=== PATIENT | female | born 1955 | race Caucasian/White ===

== ENCOUNTER 2020-03-24 21:02 | Inpatient (IN) | payer MEDICAID, SELFPAY ==
[2020-03-24 21:11] VITALS: BP 156/92; PULSE 99; RESP 19; TEMP 36; O2SAT 97
[2020-03-24] MEDS: Lactated Ringers 1,000 ML 125 ML IV (22:53)
[2020-03-24] MEDS: metroNIDAZOLE 500 MG/100 ML BAG 100 MG IVPB (22:54)
[2020-03-24] MEDS: Normal Saline Flush 10 ML SYR IVP (23:06)
[2020-03-25] MEDS: CIPROFLOXACIN 400 MG/200 ML BAG 200 MG IVPB ×3 (00:23→23:19)
[2020-03-25] MEDS: metroNIDAZOLE 500 MG/100 ML BAG 100 MG IVPB ×3 (05:32→21:37)
[2020-03-25 05:34] VITALS: BP 139/85; PULSE 72; RESP 17; TEMP 36.5; O2SAT 95
[2020-03-25 06:42] LABS: Abs Immature Grans 0.03 10^3/uL (0.0-0.06); Absolute Basophil Count 0.05 10^3/uL (0.0-0.2); Absolute Eosinophil Count 0.11 10^3/uL (0.0-0.7); Absolute Lymphocyte Count 1.13 10^3/uL (1.2-3.4); Absolute Neutrophil Count 6.83 10^3/uL (1.2-6.7); Basophils % 0.6; Eosinophils % 1.3; HCT 38.6 % (36.0-46.0); HGB 12.6 g/dL (11.2-15.7); Immature Grans % 0.3; Lymphocytes % 12.9; MCH 29.6 pg (27.0-33.0); MCHC 32.6 % (32.0-36.0); MCV 90.8 fL (80-95); MPV 10.5 fL (8.0-11.0); Monocytes % 6.9; Platelet Count 271 10^3/uL (130-400); RBC 4.25 10^6/uL (3.93-5.22); RDW 12.4 % (11.7-14.6); RDW-SD 40.9 fL; WBC 8.75 10^3/uL (4.4-10.8)
[2020-03-25 06:53] LABS: BUN 9 mg/dL (7-18); CREATININE 0.76 mg/dL (0.55-1.02); Calcium 8.8 mg/dL (8.5-10.1); Chloride 101 mmol/L (98-107); Glucose 118 mg/dL (74-106); Potassium 3.4 mmol/L (3.5-5.1); Sodium 138 mmol/L (136-145)
--- NOTE | 2020-03-25 07:19 | W.PM.HP.N ---
Date of service: 03/25/20 Time of Service: 07:19 Assessment and Plan Assessment and plan (1) Abscess of sigmoid colon due to diverticulitis: Status: Acute Assessment and plan: A// Patient appears comfortable and was observed ambulating independently within her room. IV antibiotics- Metronidazole and Ciprofloxacin IV fluids for hydration Tylenol and Toradol ordered for pain control P// IV antibiotics for sigmoid colon abscess secondary to diverticulitis. History of Present Illness History of Present Illness Chief Complaint: Sigmoid Colon Diverticulitis with abscess Narrative: 64 y/o female who was transferred from [facility] with a d/c of sigmoid colon diverticulitis with perforation with 2.5cm fluid collection on CT. Patient was started on PO Augmentin on 03/16 with no change in her symptoms. She returned to [facility] ED, she declined transfer to [facility] and requested to be transferred to [facility]. She reports a 2 week history of altered BM's (soft, small pieces) and constipation and associated cramping LLQ pain. She states that she has never had a Colonoscopy. Denies fevers, chills or night sweats. Review of Systems Constitutional Constitutional: Denies chills, Denies fever(s) and Denies night sweats Cardiovascular Cardiovascular: Denies chest pain, Denies chest pain at rest, Denies chest pain with activity, Denies syncope and Denies dyspnea Respiratory Respiratory: Denies cough, Denies dyspnea and Denies wheezing Gastrointestinal Gastrointestinal: Reports as per HPI, Reports abdominal pain, Denies melena, Reports cramping and Denies heartburn Neurologic Neurologic: Denies syncope Allergic/Immunologic Allergic/Immunologic: Denies wheezing [facility] Surgical History (Updated 03/24/20 @ 23:17 by Conchita Kenee) 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 at the same time Social History Smoking/Tobacco Use Status: Former Tobacco Use Drug use: Never Substance use type: does not use Do you feel safe at home: Yes Do you feel safe in your relationship?: Yes Meds Home Medications and Allergies Home Medications Medication Instructions Recorded Confirmed Type acetaminophen [Tylenol Extra 500 mg PO Q6H PRN PRN 03/24/20 03/24/20 History Strength] amoxicillin-pot clavulanate 1 tab PO BID 03/24/20 03/24/20 History [Augmentin] Allergies Allergy/AdvReac Type Severity Reaction Status Date / Time No Known Allergies Allergy Unverified 03/24/20 21:01 Exam Const General: cooperative, healthy appearing and comfortable Orientation: alert and oriented x3 Resp Effort & Inspection: normal respiratory effort, no audible wheezes and no cough Cardio Jugular venous pressure: no JVD Rate: regular rate Rhythm: regular rhythm Heart Sounds: S1 normal, S2 normal and no murmurs GI Inspection: normal to inspection and non-distended Palpation: soft, no guarding and tender in the LLQ Auscultation: normal bowel sounds Results Labs Result diagrams: 03/25/20 06:20 03/25/20 06:20 Labs: Laboratory Results - last 24 hr 03/25/20 03/25/20 06:20 06:20 WBC 8.75 RBC 4.25 Hgb 12.6 Hct 38.6 MCV 90.8 MCH 29.6 MCHC 32.6 RDW 12.4 Plt Count 271 MPV 10.5 Immature Gran % 0.3 Neutrophils % 78.0 Lymphocytes % 12.9 Monocytes % 6.9 Eosinophils % 1.3 Basophils % 0.6 Absolute Neutrophils 6.83 H Absolute Lymphocytes 1.13 L Absolute Monocytes 0.60 Absolute Eosinophils 0.11 Absolute Basophils 0.05 Sodium 138 Potassium 3.4 L Chloride 101 Carbon Dioxide 29.0 Anion Gap 8.0 BUN 9 Creatinine 0.76 Estimated GFR/1.73 m2 >= 60.00 Glucose 118 H Calcium 8.8 Last Vital Signs Temp 36.5 C 03/25/20 05:34 Pulse 72 03/25/20 05:34 Resp 17 03/25/20 05:34 BP 139/85 03/25/20 05:34 Pulse Ox 95 03/25/20 05:34 COVID-19 Screening Have you,or household,traveled outside [place] in last 14 days?: No Had IN PERSON contact w/suspected or confirmed C-19 person: No
[2020-03-25 07:49] VITALS: BP 139/79; PULSE 71; RESP 17; TEMP 37; O2SAT 96
[2020-03-25] MEDS: Lactated Ringers 1,000 ML 125 ML IV (09:17)
[2020-03-25] MEDS: Docusate Sodium 100 MG CAP PO ×2 (09:24→19:23)
--- NOTE | 2020-03-25 10:40 | PHA.REVIEW ---
Pharmacy Admission Review - Admission Clinical Review Abscess of sigmoid colon due to diverticulitis (Acute) No Known Allergies Allergy (Unverified 03/24/20 21:01) Height 5 ft Weight 79.379 kg - Renal Dosing Renal Dosing: BUN 9 mg/dL (7-18) 03/25/20 06:20 Creatinine 0.76 mg/dL (0.55-1.02) 03/25/20 06:20 Medications needing adjustments: Reviewed (CrCl ~70.7 mL/min using adjusted BW, current meds okay) - Anticoagulation Anticoagulation: Hgb 12.6 g/dL (11.2-15.7) 03/25/20 06:20 Hct 38.6 % (36.0-46.0) 03/25/20 06:20 Plt Count 271 10^3/uL (130-400) 03/25/20 06:20 Creatinine 0.76 mg/dL (0.55-1.02) 03/25/20 06:20 DVT Prohphylaxis: N/A Therapeutic Anticoagulation: N/A - Opiate Usage Evaluate Pain Scale/Pains Meds: Reviewed (Morphine PRN) Scheduled Bowel Reg ordered if on Opiates?: Yes (Docusate) - Relevant Labs Sodium 138 mmol/L (136-145) 03/25/20 06:20 Potassium 3.4 mmol/L (3.5-5.1) L 03/25/20 06:20 Chloride 101 mmol/L (98-107) 03/25/20 06:20 Electrolytes, C-Reactive P, ESR: Reviewed - DM Control DM Control: Glucose 118 mg/dL (74-106) H 03/25/20 06:20 Insulin Dosing: N/A (No DM, glucose was elevated at 118) - Heart Failure/ME EF%, DEANDRE's, B-Blockers, Diuretics: N/A - BP Control BP Control: Blood Pressure 139/79 Blood Pressure 139/85 If elevated: N/A (BP good, was elevated yesterday but has normalized today) - Qtc Review If Elevated: N/A (No EKG labs) - IV to PO Switch IV Medications: Reviewed (IV ciprofloxacin, ketorolac, metronidazole, ondansetron) - Home Meds Home Med List reviewed: Reviewed Relevent Home Meds Not ordered & why?: Augmentin (started PO on 03/16 but no change in symptoms, current orders for ciprofloxacin and metronidazole) - Current meds Current Medication Order Review: Reviewed (Watch for QTc prolongation, no current EKG labs but on ciprofloxacin, metronidazole and ondansetron) - Comments Comments/Follow Ups: Monitor K+, watch for addition of any QTc prolonging meds (currently on 3)
--- NOTE | 2020-03-25 11:02 | INITIAL_ITS ---
- If Service Date Differs Date of service: 03/25/20 Time of Service: 11:02 Care Management Initial Assess REASON FOR HOSPITALIZATION:: Diverticulitis PAST MEDICAL HISTORY/PAST SURGICAL HISTORY:: Surgical History. History of tubal ligation (Chronic). 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 She has three children who are all fairly local. Currently her grand daughter lives with her along with her granddaughter's boyfriend and child. She is independent at baseline. CURRENT FUNCTIONAL STATUS:: Patricia was lying in bed when CM met with her. She stated that she is feeling better today, and that she has been able to get up and walk a bit. She stated that she was hoping to return home this afternoon, but had not yet seen the MD. Per report, she will continue to receive IV abx, and will be reassessed in the morning. She was pleasant and engaged in conversation. Her son, Dieter was in the room. CM will continue to follow. ADVANCE DIRECTIVES:: None on file. Has patient been provided with info about the portal/API?: No Did the patient sign up for the portal?: No CODE STATUS:: Full Code INSURANCE COVERAGE / FINANCIAL ISSUES:: Self Pay. CM offered Pt assistance form. CURRENT HOME/COMMUNITY SERVICES/EQUIPMENT:: No current equipment or services in the community. PRIMARY CARE PHYSICIAN:: No local PCP. POTENTIAL DISCHARGE NEEDS:: Evaluations for further needs, follow up appointments. PATIENT/FAMILY EDUCATION NEEDS:: Review discharge instructions regarding activity levels and medications, discussion of self care needs including ask me three ANTICIPATED BARRIERS TO DISCHARGE:: None identified at this time. TRANSPORTATION:: Via private vehicle by family/friends. PLAN:: Anticipate Patricia will return home when medically cleared. She will follow up with her PCP and discharge plan of care. Further evaluations needed to determine if additional services/support needed. CM will continue to follow.
[2020-03-25 13:01] LABS: COVID-19 RT-PCR UVMMC Result Negative (Negative)
--- NOTE | 2020-03-25 15:20 | W.PM.PROGNOT ---
Date of Service Date of service: 03/25/20 Time of Service: 15:20 Assessment and Plan Assessment and plan (1) Abscess of sigmoid colon due to diverticulitis: Status: Acute Assessment and plan: A\\ Diverticulitis with 2.5 cm abscess P\\ Saline lock IV Continue IV antibiotics Reassess in am Subjective Subjective Interval history since last seen: Patient is doing well. She has had a couple of soft BM's. Pain is less and well controlled with Toradol and Tylenol. Her diet has been advanced. She has been drinking a lot of fluids. Discussed reason for IV antibiotics for at least another 24 hours. Exam [facility] Head: normocephalic and atraumatic Resp Effort & Inspection: normal respiratory effort Auscultation: clear to auscultation bilaterally Cardio Rate: regular rate Rhythm: regular rhythm Objective Objective Clinical Data: Abnormal lab results 03/25/20 03/25/20 Range/Units 06:20 06:20 Absolute Neutrophils 6.83 H (1.2-6.7) 10^3/uL Absolute Lymphocytes 1.13 L (1.2-3.4) 10^3/uL Potassium 3.4 L (3.5-5.1) mmol/L Glucose 118 H (74-106) mg/dL Vital Signs Temperature 98.6 F 03/25/20 07:49 Temperature Source Tympanic 03/25/20 07:49 Pulse 71 03/25/20 07:49 Pulse Rhythm Regular 03/25/20 08:51 Respiratory Rate 17 03/25/20 07:49 Respiratory Effort Non-Labored 03/25/20 08:51 Respiratory Depth Normal 03/25/20 08:51 Respiratory Pattern Normal 03/25/20 08:51 Blood Pressure 139/79 03/25/20 07:49 Pulse Oximetry 96 03/25/20 07:49 Oxygen Delivery Method Room Air 03/25/20 07:49 Oxygen Flow Rate 0 03/25/20 07:49 Pain Level 2 03/25/20 07:49 Intake & Output 03/24/20 03/25/20 03/25/20 23:59 11:59 23:59 Intake Total 2.083 / 2.083 1512.50 / 1512.50 Balance 2.083 / 2.083 1512.50 / 1512.50 Weight 175 lb 0.012 oz Intake: IV 2.083 / 2.083 1212.50 / 1212.50 Oral 300 / 300 Other: Urine Color Yellow Yellow Urine Appearance Clear Clear Comment flushed, unable to measure Voids independently in the toliet. Pt voids in the toliet independently. Has frequent voiding. Stool Size Small Large Moderate Stool Characteristics Formed Formed Liquid Voiding Methods Toilet Toilet Laboratory Results WBC 8.75 10^3/uL (4.4-10.8) 03/25/20 06:20 RBC 4.25 10^6/uL (3.93-5.22) 03/25/20 06:20 Hgb 12.6 g/dL (11.2-15.7) 03/25/20 06:20 Hct 38.6 % (36.0-46.0) 03/25/20 06:20 MCV 90.8 fL (80-95) 03/25/20 06:20 MCH 29.6 pg (27.0-33.0) 03/25/20 06:20 MCHC 32.6 % (32.0-36.0) 03/25/20 06:20 RDW 12.4 % (11.7-14.6) 03/25/20 06:20 Plt Count 271 10^3/uL (130-400) 03/25/20 06:20 MPV 10.5 fL (8.0-11.0) 03/25/20 06:20 Immature Gran % 0.3 03/25/20 06:20 Neutrophils % 78.0 03/25/20 06:20 Lymphocytes % 12.9 03/25/20 06:20 Monocytes % 6.9 03/25/20 06:20 Eosinophils % 1.3 03/25/20 06:20 Basophils % 0.6 03/25/20 06:20 Absolute Neutrophils 6.83 10^3/uL (1.2-6.7) H 03/25/20 06:20 Absolute Lymphocytes 1.13 10^3/uL (1.2-3.4) L 03/25/20 06:20 Absolute Monocytes 0.60 10^3/uL (0.1-0.8) 03/25/20 06:20 Absolute Eosinophils 0.11 10^3/uL (0.0-0.7) 03/25/20 06:20 Absolute Basophils 0.05 10^3/uL (0.0-0.2) 03/25/20 06:20 Sodium 138 mmol/L (136-145) 03/25/20 06:20 Potassium 3.4 mmol/L (3.5-5.1) L 03/25/20 06:20 Chloride 101 mmol/L (98-107) 03/25/20 06:20 Carbon Dioxide 29.0 mmol/L (21.0-32.0) 03/25/20 06:20 Anion Gap 8.0 mmol/L (3-11) 03/25/20 06:20 BUN 9 mg/dL (7-18) 03/25/20 06:20 Creatinine 0.76 mg/dL (0.55-1.02) 03/25/20 06:20 Estimated GFR/1.73 m2 >= 60.00 (mL/min/1.73m2) 03/25/20 06:20 Glucose 118 mg/dL (74-106) H 03/25/20 06:20 Calcium 8.8 mg/dL (8.5-10.1) 03/25/20 06:20 COVID-19 PCR Negative (Negative) 03/24/20 22:19 Nasopharyn COVID-19 PCR Not Applicable 03/24/20 22:19 Ref Test Perform Site [facility] 03/24/20 22:19
--- NOTE | 2020-03-25 15:25 | CHAPLAIN ---
Patricia was resting in bed when I visited. Her son (?) was with her. Patricia told me that she is from [place], [place] and she prefers to come here rather than [facility] which is closer for her. She said there is a possibility she will go home today.
[2020-03-25 15:40] VITALS: BP 172/62; PULSE 70; RESP 18; TEMP 36.2; O2SAT 97
[2020-03-25] MEDS: Normal Saline Flush 10 ML SYR IVP ×2 (16:51→21:36)
[2020-03-25 23:51] VITALS: BP 123/69; PULSE 76; RESP 18; TEMP 36.5; O2SAT 96
[2020-03-26] MEDS: metroNIDAZOLE 500 MG/100 ML BAG 100 MG IVPB (05:47)
[2020-03-26] MEDS: Normal Saline Flush 10 ML SYR IVP ×2 (07:15→11:27)
[2020-03-26 07:42] VITALS: BP 135/74; PULSE 71; RESP 17; TEMP 36.4; O2SAT 95
[2020-03-26] MEDS: Docusate Sodium 100 MG CAP PO (07:45)
--- NOTE | 2020-03-26 08:16 | W.PM.PROGNOT ---
Documented by User: OLEGARIO Villatoro 03/26/20 08:17 Date of Service Date of service: 03/26/20 Time of Service: 07:00 Assessment and Plan Assessment and plan (1) Abscess of sigmoid colon due to diverticulitis: Status: Acute Assessment and plan: Continue IV antibiotics. Encouraged ambulation as tolerated. Continue low fiber diet. Subjective Subjective Interval history since last seen: Slept well overnight. Mild, cramping LLQ pain. Denies any nausea, vomiting, fevers or chills. Exam Const General: cooperative, healthy appearing and comfortable Orientation: alert and oriented x3 Resp Effort & Inspection: normal respiratory effort, no audible wheezes and no cough GI Inspection: normal to inspection Palpation: soft, no guarding and nontender Auscultation: normal bowel sounds Objective Objective Clinical Data: Vital Signs Temperature 36.4 C L 03/26/20 07:42 Temperature Source Tympanic 03/26/20 07:42 Pulse 71 03/26/20 07:42 Pulse Rhythm Regular 03/26/20 07:57 Respiratory Rate 17 03/26/20 07:42 Respiratory Effort Non-Labored 03/26/20 07:57 Respiratory Depth Normal 03/26/20 07:57 Respiratory Pattern Normal 03/26/20 07:57 Blood Pressure 135/74 03/26/20 07:42 Pulse Oximetry 95 03/26/20 07:42 Oxygen Delivery Method Room Air 03/26/20 07:42 Oxygen Flow Rate 0 03/26/20 07:42 Pain Level 1 03/26/20 07:42 Intake & Output 03/25/20 03/26/20 03/26/20 18:59 06:59 18:59 Intake Total 1881.25 / 2441.25 560 / 2441.25 Balance 1881.25 / 2441.25 560 / 2441.25 Intake: IV 1581.25 / 1691.25 110 / 1691.25 Oral 300 / 750 450 / 750 Other: Urine Color Yellow Urine Appearance Clear Clear Urine Odor Normal Comment Pt voids in the toliet independently. Has frequent voiding. Pt voided in the toliet independently Stool Size Moderate Stool Characteristics Liquid Voiding Methods Toilet Toilet Laboratory Results WBC 8.75 10^3/uL (4.4-10.8) 08/03/20 06:20 RBC 4.25 10^6/uL (3.93-5.22) 03/25/20 06:20 Hgb 12.6 g/dL (11.2-15.7) 03/25/20 06:20 Hct 38.6 % (36.0-46.0) 03/25/20 06:20 MCV 90.8 fL (80-95) 03/25/20 06:20 MCH 29.6 pg (27.0-33.0) 03/25/20 06:20 MCHC 32.6 % (32.0-36.0) 03/25/20 06:20 RDW 12.4 % (11.7-14.6) 03/25/20 06:20 Plt Count 271 10^3/uL (130-400) 03/25/20 06:20 MPV 10.5 fL (8.0-11.0) 03/25/20 06:20 Immature Gran % 0.3 03/25/20 06:20 Neutrophils % 78.0 03/25/20 06:20 Lymphocytes % 12.9 03/25/20 06:20 Monocytes % 6.9 03/25/20 06:20 Eosinophils % 1.3 03/25/20 06:20 Basophils % 0.6 03/25/20 06:20 Absolute Neutrophils 6.83 10^3/uL (1.2-6.7) H 03/25/20 06:20 Absolute Lymphocytes 1.13 10^3/uL (1.2-3.4) L 03/25/20 06:20 Absolute Monocytes 0.60 10^3/uL (0.1-0.8) 03/25/20 06:20 Absolute Eosinophils 0.11 10^3/uL (0.0-0.7) 03/25/20 06:20 Absolute Basophils 0.05 10^3/uL (0.0-0.2) 03/25/20 06:20 Sodium 138 mmol/L (136-145) 03/25/20 06:20 Potassium 3.4 mmol/L (3.5-5.1) L 03/25/20 06:20 Chloride 101 mmol/L (98-107) 03/25/20 06:20 Carbon Dioxide 29.0 mmol/L (21.0-32.0) 03/25/20 06:20 Anion Gap 8.0 mmol/L (3-11) 03/25/20 06:20 BUN 9 mg/dL (7-18) 03/25/20 06:20 Creatinine 0.76 mg/dL (0.55-1.02) 03/25/20 06:20 Estimated GFR/1.73 m2 >= 60.00 (mL/min/1.73m2) 03/25/20 06:20 Glucose 118 mg/dL (74-106) H 03/25/20 06:20 Calcium 8.8 mg/dL (8.5-10.1) 03/25/20 06:20 COVID-19 PCR Negative (Negative) 03/24/20 22:19 Julia COVID-19 PCR Not Applicable 03/24/20 22:19 Ref Test Perform Site [facility] 03/24/20 22:19 Documented by User: Maureen Tarango MD 03/26/20 11:36
--- NOTE | 2020-03-26 10:45 | W.NUTRFU ---
Date of service: 03/26/20 Time of Service: 10:46 Nutritional Follow up NOTE: 64 year old female admitted with abscess of sigmoid colon due to diverticulities with perforation. Did not require surgery. Following regular soft bite diet without issues. No dentition but able to tolerate regular texture. BMI indicates class 1 obesity. Met with Patricia today to discuss diet s/p diverticulities- provided education material and contact information if needs nutritional advice in outpatient setting. Reviewed importance of following low fiber diet for next 7-10 days, and increase in fiber intake there after to promote healthy digestive track. Encouraged good hydration and monitoring of stools. receptive to education and verbalized understanding. Time Spent in Nutritional Counseling and Treatment: 10 min spent face to face
[2020-03-26] MEDS: CIPROFLOXACIN 400 MG/200 ML BAG 200 MG IVPB (11:26)
--- NOTE | 2020-03-26 11:38 | DSE_ITS ---
Date of service: 03/26/20 Time of Service: 11:38 DS: Diagnosis Discharge Diagnosis (1) Abscess of sigmoid colon due to diverticulitis: Status: Acute Discharge Plan Disposition Patient Disposition: HOME Condition: Improving Discharge Details Reason For Visit: DIVERTICULITIS with microperforation Admit Date/Time: 03/24/20 21:02 Admit Provider: Maureen Tarango Attending Provider: Maureen Tarango Primary Care Provider: None,None Hospital Course Hospital Course: The patient was admitted for IV antibiotics. Her diet was advanced to soft without nausea or increased pain. She had two small bowel movements and was passing flatus. Her abdominal exam and pain improved over her stay. Her WBC was normal. She was discharged to home with the above instructions and will establish care with a PCP for follow up closer to home. Home Meds and New Rx's Prescriptions: New docusate sodium [Colace] 100 mg Capsule 100 mg PO BID Qty: 20 RF: 0 amoxicillin-pot clavulanate [Augmentin] 875-125 mg tablet 1 tab PO BID Qty: 14 RF: 0 Continued acetaminophen [Tylenol Extra Strength] 500 mg Tablet 500 mg PO Q6H PRN PRNRF: 0 No Action amoxicillin-pot clavulanate [Augmentin] 875-125 mg Tablet 1 tab PO BID RF: 0 Discharge Instructions Additional Instructions: Your activity is as tolerated. Plan to be off work until 04/03/20 Follow up with your new primary care provider within a week. Take in a low fiber diet for two weeks and also Kefir yogurt drink for probiotics. Call if you have worsening pain, fever or cannot have a bowel movement. It is expected that your bowel habits will not be normal for a few weeks. Take the antibiotics for another week. Referrals: Chito Barraza [ [facility] STAFF PHYSICIAN] - (Follow up within a week.) Activity:: Activity as Tolerated Equipment/Supplies:: No Equipment Needed Diet:: Low fiber Discharge Orders Discharge Orders: Discharge Order (Routine); Ordered 03/26/20 Ordered By: Maureen Tarango DS: Summary Status at Discharge Functional status at discharge: independent ambulation Overall status at discharge: patient is progressing back to baseline Mental Status: mental status grossly normal Speech and Movement: speech and movement normal Mood: congruent mood Affect: normal affect Exam Psych Mental Status: mental status grossly normal Speech and Movement: speech and movement normal Mood: congruent mood Affect: normal affect DS: Data Vitals/I&O Vitals and I&O: Vital Signs Temperature 97.5 F L 03/26/20 07:42 Temperature Source Tympanic 03/26/20 07:42 Pulse 71 03/26/20 07:42 Pulse Rhythm Regular 03/26/20 07:57 Respiratory Rate 17 03/26/20 07:42 Respiratory Effort Non-Labored 03/26/20 07:57 Respiratory Depth Normal 03/26/20 07:57 Respiratory Pattern Normal 03/26/20 07:57 Blood Pressure 135/74 03/26/20 07:42 Pulse Oximetry 95 03/26/20 07:42 Oxygen Delivery Method Room Air 03/26/20 07:42 Oxygen Flow Rate 0 03/26/20 07:42 Pain Level 1 03/26/20 07:42 Intake & Output 03/25/20 03/25/20 03/26/20 11:59 23:59 11:59 Intake Total 1512.50 / 3335.00 1822.5 / 3335.00 210 / 210 Balance 1512.50 / 3335.00 1822.5 / 3335.00 210 / 210 Intake: IV 1212.50 / 2585.00 1372.5 / 2585.00 210 / 210 Oral 300 / 750 450 / 750 Other: Urine Color Yellow Urine Appearance Clear Clear Urine Odor Normal Comment Voids independently in the toliet. Pt voids in the toliet independently. Has frequent voiding. 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
--- NOTE | 2020-03-26 16:12 | CMDISCH_ITS ---
- If Service Date Differs Date of service: 03/26/20 Time of Service: 16:12 LACE Index Scoring Tool - Questions: Length of Stay (in days): 3 Acuity (Admit via E.D.?): No E.D. Visits: 1 - Answers: Total Score: 4 Risk of Readmission: Low Risk Care Management Discharge Reason for Hospitalization: Diverticulitis Discharge Plan: Patricia will return home with no additional services at this time. provided a patient assistance packet to Patricia, as she does not currently have insurance. She reported that she is working with someone at [facility] currently to obtain insurance and a local PCP. She will be driven home by her daughter in law. She is happy to be returning home. Patient/Family Education Needs: Review discharge instructions regarding activity levels and medications, discussion of self care needs including ask me three.
== END 2020-03-26 13:58 | disposition home or self-care (01) | DRG 392 ==
PROVIDERS: Admitting Provider Surgery; Visit Provider Surgery
DX: K57.20 Diverticulitis of large intestine with perforation and abscess without bleeding (principal); Z87.891 Personal history of nicotine dependence
CPT/HCPCS: 36415; 80048; 99221; 99232; 99238; NC; U0003; 85025; J0744

== ENCOUNTER 2020-04-05 08:54 | Emergency (ER) | payer MEDICAID, SELFPAY ==
[2020-04-05] VITALS (43 sets, daily range): BP systolic 110–159; BP diastolic 64–88; PULSE 79–106; RESP 10–32; TEMP 36.5; O2SAT 88–95
[2020-04-05] MEDS: Normal Saline 1,000 ML 1000 ML IV (09:28)
[2020-04-05 09:31] LABS: Lactate 0.8 mmol/L (0.6-1.4)
[2020-04-05 09:33] LABS: Abs Immature Grans 0.06 10^3/uL (0.0-0.06); Absolute Basophil Count 0.05 10^3/uL (0.0-0.2); Absolute Eosinophil Count 0.02 10^3/uL (0.0-0.7); Absolute Lymphocyte Count 1.16 10^3/uL (1.2-3.4); Absolute Monocyte Count 0.98 10^3/uL (0.1-0.8); Absolute Neutrophil Count 14.58 10^3/uL (1.2-6.7); Basophils % 0.3; Eosinophils % 0.1; HCT 38.1 % (36.0-46.0); HGB 12.5 g/dL (11.2-15.7); Immature Grans % 0.4; Lymphocytes % 6.9; MCH 29.6 pg (27.0-33.0); MCHC 32.8 % (32.0-36.0); MCV 90.3 fL (80-95); MPV 10.6 fL (8.0-11.0); Monocytes % 5.8; Neutrophils % 86.5; Nucleated RBC 0 %; Platelet Count 391 10^3/uL (130-400); RBC 4.22 10^6/uL (3.93-5.22); RDW 12.7 % (11.7-14.6); WBC 16.85 10^3/uL (4.4-10.8)
[2020-04-05 09:38] LABS: Bilirubin Moderate (Negative); Blood Trace-intact (Negative); Clarity Sl Cloudy (Clear); Glucose Negative (Negative); Ketones 40 mg/dL (Negative); Leukocyte Esterase Negative (Negative); Nitrite Negative (Negative); Specific Gravity 1.025 (1.005-1.025); pH 6.5 (5-8)
--- NOTE | 2020-04-05 09:45 | RT.EKG_ITS ---
APPROVED REPORT Exam: Resting ECG Patient Location: E HR:89 bpm ECG Measurements Heart Rate 89 AXIS WY 143 P 43 QRSd 93 QRS 7 QT 359 T 45 QTc 438 Conclusion Sinus rhythm...normal P axis, V-rate 60- 99
[2020-04-05 09:46] LABS: INR 1.1 (0.9-1.1); Prothrombin Time 10.7 sec (9.3-11.0)
[2020-04-05 09:51] LABS: ALT 36 U/L (14-59); AST 24 U/L (15-37); Albumin 2.8 g/dL (3.4-5.0); Alkaline Phosphatase 201 U/L (46-116); Anion Gap 10.1 mmol/L (3-11); BUN 15 mg/dL (7-18); Bilirubin, Total 0.6 mg/dL (0.2-1.0); CO2 27.9 mmol/L (21.0-32.0); CREATININE 0.76 mg/dL (0.55-1.02); Calcium 9.2 mg/dL (8.5-10.1); Chloride 99 mmol/L (98-107); Glucose 129 mg/dL (74-106); Lipase 83 U/L (73-393); Sodium 137 mmol/L (136-145); Total Protein 7.7 g/dL (6.4-8.2)
[2020-04-05 09:52] LABS: Bacteria Negative HPF (Negative); C & S Indicated? No; Casts Negative LPF (Negative); Crystals Negative HPF (Negative); Epithelial Cells Rare HPF (Negative); Mucus Moderate (Negative); RBC 0-2 HPF (0-2); WBC 0-2 HPF (0-5)
[2020-04-05 09:53] LABS: Potassium 2.9 mmol/L (3.5-5.1)
--- NOTE | 2020-04-05 10:14 | DI.CT_ITS ---
EXAM: CT ABDOMEN PELVIS W CLINICAL HISTORY: LLQ pain, recent diverticulitis with abscess TECHNIQUE: Imaging Protocol: Axial computed tomography images with coronal and sagittal reformatted images were created and reviewed CONTRAST MATERIAL: Intravenous: Omnipaque 350 Contrast volume:100 mL Oral: No COMPARISON: CT CT ABD AND PELVIS WITH CONTRAS from 03/24/2020 FINDINGS: ABDOMEN: Lung Bases: Normal where visualized. Liver: Normal density. No measurable mass. Portal, Superior Mesenteric, and Splenic Veins: Unremarkable. Gallbladder and Biliary Tract: No radiodense calculus or dilation. Pancreas: Normal density, no abnormal calcifications or inflammatory process. Spleen: Normal. Adrenals: No masses seen. Kidneys: Normal size, contour and axis. Bilateral nephrolithiasis. No hydronephrosis. No masses see n. Abdominal Aorta: Abdominal portion non-dilated. Atherosclerosis. Bowel: There is bowel wall thickening and surrounding inflammation in the sigmoid colon. Diverticulo sis is present. The findings are most consistent with acute diverticulitis. There has been interval increase in size of the abscess interposed between the inflamed sigmoid colon and uterus. It now me asures 8.3 x 5.6 cm. Appendix is unremarkable. Peritoneal Cavity: No ascites, collection or mesenteric inflammatory response. No free air. Lymph Nodes: Within normal limits. Bones: No acute abnormality. Soft Tissues: Unremarkable. PELVIS: Bladder: Nondistended. No gross abnormality. Reproductive Organs: Unremarkable as visualized. Lymph Nodes: Within normal limits. Bones: Within normal limits. IMPRESSION: Findings again consistent with acute sigmoid diverticulitis. Interval increase in size of the pelvic abscess. Findings were discussed with the emergency department on the date of the examination. RADIATION DOSE DELIVERED: 969.7mGy.cm Total DLP DATA REPOSITORY: All CT scans at this facility are submitted to the National Radiology Data Registry (NRDR) Dose Index Registry (DIR) with the [employer] (A[employer]). RADIATION OPTIMIZATION: All CT scans at this facility use at least one of these dose optimization te chniques: automated exposure control; mA and/or kV adjustment per patient size (includes targeted exa ms where dose is matched to clinical indication); or iterative reconstruction.
[2020-04-05] MEDS: POTASSIUM CHLORIDE 20 MEQ/100 ML BAG 50 MEQ IVPB (10:15)
[2020-04-05] MEDS: Normal Saline 1,000 ML 125 ML IV (10:17)
[2020-04-05] MEDS: Omnipaque 350 MG/ML 100 ML BTL IJ (10:34)
[2020-04-05] MEDS: Normal Saline - Diluent 50 ML VIAL IV (10:34)
[2020-04-05] MEDS: PIPERACILLIN/TAZO 3.375 GM in Normal Saline 50 ML IVPB (11:32)
--- NOTE | 2020-04-05 11:39 | ED.GENADUL_ITS ---
Discharge Plan Disposition Patient Disposition: AGAINST MEDICAL ADVICE Condition: Serious Discharge Details Chief Complaint: Abd Prob Clinical Impression: Diverticulitis of intestine with abscess Primary Care Provider: Unknown,Unknown ED Provider: Renan Stevens Home Meds and New Rx's Prescriptions: No Action acetaminophen [Tylenol Extra Strength] 500 mg Tablet 500 mg PO Q6H PRN PRNRF: 0 amoxicillin-pot clavulanate [Augmentin] 875-125 mg Tablet 1 tab PO BID RF: 0 docusate sodium [Colace] 100 mg Capsule 100 mg PO BID Qty: 20 RF: 0 amoxicillin-pot clavulanate [Augmentin] 875-125 mg tablet 1 tab PO BID Qty: 14 RF: 0 Discharge Instructions Instructions: Abscess (ED), Diverticulitis (ED) Additional Instructions: As we discussed, you have diverticulitis with an abscess. I have arranged transport for you to [facility], directly to the ER with a surgical consultation. At this time you have decided to leave A and not allow us to provide transportation. You have told me that you will go directly to the [facility] via a private vehicle. Bring the transfer packet with you and presented when you arrive. Do not eat or drink anything. Medical Decision Making <Arley Davila MD - Last Filed: 04/05/20 11:40> I had a [id number] encounter with the patient. I evaluated the patient. I discussed case with BOILER SERVICE TECHNICIAN/PA and I reviewed BOILER SERVICE TECHNICIAN/PA note and agree with note as documented <OLEGARIO Begum - Last Filed: 04/05/20 14:29> 64-year-old female with no other significant past medical history, presents for ongoing left lower quadrant pain. She was diagnosed with diverticulitis with abscess over the past 2 weeks, hospitalized, no surgical intervention, and subsequently discharged on oral Augmentin. She is still taking the Augmentin as directed. Reports the pain in her left lower quadrant has been getting worse over the past 5 days. No other symptoms such as fever, chest pain, shortness of breath, nausea, vomiting, diarrhea or constipation. Given her recent diagnosis of diverticulitis with abscess, will obtain IV access, give IV fluid, obtain routine laboratory values including a lactic acid, and CT imaging of the abdomen and pelvis with contrast. Laboratory values reveal a white blood cell count of 16.85 hemoglobin 12.5 hematocrit 38.1 platelet count 391. INR 1.1. Potassium of 2.9. Creatinine of 0.76 with a estimated GFR greater than 60. Glucose 129. Lactate 0.8, urinalysis with 40 ketones but no evidence of infection. EKG obtained and patient given both IV and p.o. potassium. CT imaging reveals ongoing diverticulitis with an abscess that is enlarging, now a by 5.6 cm. Patient given 3.375 of IV Zosyn I discussed CT imaging with Dr. Stanton, surgery here at our facility. Patient will need IR and recommends looking at potential transfer to [facility] or [facility]. I spoke with [facility], that they are at capacity and cannot accept transfer however they will look into seeing if we can keep the patient at our facility and transferred down simply for an IR procedure and then transfer back to our facility. After quite some time I received a phone call stating that they could not and they recommend looking elsewhere. I then discussed the case with surgery at [facility], Dr. Shields. She believes the patient meets criteria for transfer and recommends a transfer through the ER. I then spoke with the ER attending, Dr. Santa who happily accepts transfer of the patient through his ER. Patient reports pain is worsening, given 2 mg IV morphine. In the meantime I received a call from [facility] stating that they believe they could now do the IR procedure this evening. They did not have exact details or a time for me. I discussed the options with Dr. Stanton once again. Given we do not have an exact time for the IR procedure, and we do have an accepting higher level of care through the [facility], she does recommend transfer. I discussed work-up, need for higher level of care, and transfer with patient. She is agreeable to go to [facility] but declines an ambulance, is willing to sign out AMA. She is concerned that she does not have insurance. I did request that care management come talk with the patient regarding transfer and our options as I would feel much better if she be transferred via ambulance versus leaving AMA and going by private car. She continues to wish to go by private vehicle. We will still provide her with a transfer packet to bring to the emergency room once she gets to the [facility] Patient appears clinically sober, is of sound mind, and based upon my clinical examination has the capacity to make their own decisions. We have offered treatment options and discussed the the risks and benefits of these options and refusing these options, including and/or disability specific to the patient's pathology. Pt is able to discuss and understands the risks and benefits and alternatives of treatment and refusing treatment. We have tried to involve the patient's family or support group that was present here or by contacting them on the phone. The patient still chooses to leave before evaluation and treatment can be completed AGAINST MEDICAL ADVICE. We did reach out to the [facility] transfer line making aware that she would be going by private vehicle and signing out AMA here. Medical Records Medical records reviewed: Yes I reviewed the patient's medical records. Lab Data Lab results reviewed: Yes I reviewed the patient's lab results. Lab results narrative: Laboratory Tests Range/Units 04/05/20 04/05/20 04/05/20 09:07 09:20 09:20 WBC (4.4-10.8) 10^3/uL RBC (3.93-5.22) 10^6/uL Hgb (11.2-15.7) g/dL Hct (36.0-46.0) % MCV (80-95) fL MCH (27.0-33.0) pg MCHC (32.0-36.0) % RDW (11.7-14.6) % Plt Count (130-400) 10^3/uL MPV (8.0-11.0) fL Immature Gran % Neutrophils % Lymphocytes % Monocytes % Eosinophils % Basophils % Absolute Neutrophils (1.2-6.7) 10^3/uL Absolute Lymphocytes (1.2-3.4) 10^3/uL Absolute Monocytes (0.1-0.8) 10^3/uL Absolute Eosinophils (0.0-0.7) 10^3/uL Absolute Basophils (0.0-0.2) 10^3/uL PT (9.3-11.0) sec INR (0.9-1.1) Sodium (136-145) mmol/L 137 Potassium (3.5-5.1) mmol/L 2.9 L* Chloride (98-107) mmol/L 99 Carbon Dioxide (21.0-32.0) mmol/L 27.9 Anion Gap (3-11) mmol/L 10.1 BUN (7-18) mg/dL 15 Creatinine (0.55-1.02) mg/dL 0.76 Estimated GFR/1.73 m2 (mL/min/1.73m2) >= 60.00 Glucose (74-106) mg/dL 129 H Lactate (0.6-1.4) mmol/L 0.8 Calcium (8.5-10.1) mg/dL 9.2 Total Bilirubin (0.2-1.0) mg/dL 0.6 AST (15-37) U/L 24 ALT (14-59) U/L 36 Alkaline Phosphatase (46-116) U/L 201 H Total Protein (6.4-8.2) g/dL 7.7 Albumin (3.4-5.0) g/dL 2.8 L Lipase (73-393) U/L 83 Urine Color (Yellow) Susan Urine Clarity (Clear) Sl cloudy Urine pH (5-8) 6.5 Ur Specific [place] (1.005-1.025) 1.025 Urine Protein (Negative) mg/dL >=300 H Urine Ketones (Negative) mg/dL 40 H Urine Blood (Negative) Trace-intact H Urine Nitrite (Negative) Negative Urine Bilirubin (Negative) Moderate H Urine Urobilinogen (Up TO 0.2) EU/dL 4.0 H Ur Leukocyte Esterase (Negative) Negative Urine RBC (0-2) HPF 0-2 Urine WBC (0-5) HPF 0-2 Ur Epithelial Cells (Negative) HPF Rare Urine Crystals (Negative) HPF Negative Urine Bacteria (Negative) HPF Negative Urine Casts (Negative) LPF Negative Urine Mucus (Negative) Moderate Ur Culture Indicated? No Urine Glucose (Negative) mg/dL Negative Range/Units 04/05/20 04/05/20 09:20 09:20 WBC (4.4-10.8) 10^3/uL 16.85 H RBC (3.93-5.22) 10^6/uL 4.22 Hgb (11.2-15.7) g/dL 12.5 Hct (36.0-46.0) % 38.1 MCV (80-95) fL 90.3 MCH (27.0-33.0) pg 29.6 MCHC (32.0-36.0) % 32.8 RDW (11.7-14.6) % 12.7 Plt Count (130-400) 10^3/uL 391 D MPV (8.0-11.0) fL 10.6 Immature Gran % 0.4 Neutrophils % 86.5 Lymphocytes % 6.9 Monocytes % 5.8 Eosinophils % 0.1 Basophils % 0.3 Absolute Neutrophils (1.2-6.7) 10^3/uL 14.58 H Absolute Lymphocytes (1.2-3.4) 10^3/uL 1.16 L Absolute Monocytes (0.1-0.8) 10^3/uL 0.98 H Absolute Eosinophils (0.0-0.7) 10^3/uL 0.02 Absolute Basophils (0.0-0.2) 10^3/uL 0.05 PT (9.3-11.0) sec 10.7 INR (0.9-1.1) 1.1 Sodium (136-145) mmol/L Potassium (3.5-5.1) mmol/L Chloride (98-107) mmol/L Carbon Dioxide (21.0-32.0) mmol/L Anion Gap (3-11) mmol/L BUN (7-18) mg/dL Creatinine (0.55-1.02) mg/dL Estimated GFR/1.73 m2 (mL/min/1.73m2) Glucose (74-106) mg/dL Lactate (0.6-1.4) mmol/L Calcium (8.5-10.1) mg/dL Total Bilirubin (0.2-1.0) mg/dL AST (15-37) U/L ALT (14-59) U/L Alkaline Phosphatase (46-116) U/L Total Protein (6.4-8.2) g/dL Albumin (3.4-5.0) g/dL Lipase (73-393) U/L Urine Color (Yellow) Urine Clarity (Clear) Urine pH (5-8) Ur Specific [place] (1.005-1.025) Urine Protein (Negative) mg/dL Urine Ketones (Negative) mg/dL Urine Blood (Negative) Urine Nitrite (Negative) Urine Bilirubin (Negative) Urine Urobilinogen (Up TO 0.2) EU/dL Ur Leukocyte Esterase (Negative) Urine RBC (0-2) HPF Urine WBC (0-5) HPF Ur Epithelial Cells (Negative) HPF Urine Crystals (Negative) HPF Urine Bacteria (Negative) HPF Urine Casts (Negative) LPF Urine Mucus (Negative) Ur Culture Indicated? Urine Glucose (Negative) mg/dL ECG Data Attestation: I personally reviewed and interpreted this ECG (s) as follows: Interpretation: EKG performed at [facility]. Reviewed and interpreted with Dr. Davila, please see his official report. Sinus rhythm, ventricular rate of 89. No STEMI HPI <Arley Davila MD - Last Filed: 04/05/20 11:40> General Date/Time Provider Initiated Documentation: 04/05/20 08:55 . Related Data Home Medications Medication Instructions Recorded Confirmed acetaminophen [Tylenol Extra 500 mg PO Q6H PRN PRN 03/24/20 04/05/20 Strength] amoxicillin-pot clavulanate 1 tab PO BID 03/24/20 04/05/20 [Augmentin] amoxicillin-pot clavulanate 1 tab PO BID #14 tab 03/26/20 04/05/20 [Augmentin] docusate sodium [Colace] 100 mg PO BID #20 cap 03/26/20 04/05/20 Previous Rx's Medication Instructions Recorded amoxicillin-pot clavulanate 1 tab PO BID #14 tab 03/26/20 [Augmentin] docusate sodium [Colace] 100 mg PO BID #20 cap 03/26/20 Allergies Allergy/AdvReac Type Severity Reaction Status Date / Time No Known Allergies Allergy Unverified 04/05/20 09:18 <OLEGARIO Begum - Last Filed: 04/05/20 14:29> General Mode of arrival: ambulatory . Limitations to Documentation: no limitations . Information obtained by: patient . HPI Narrative: This is a 64-year-old female who presents to the ER for ongoing left lower quadrant pain for roughly 2 weeks. She was initially seen at [facility] on 03-24-20, because of lack of the surgical coverage, sent to our facility as an inpatient for diverticulitis with abscess. Patient was admitted to our facility, and subsequently discharged on p.o. Augmentin, no surgical intervention required. She reports that she began feeling somewhat better but now over the last 5 days has had increased left lower quadrant discomfort, crampy, worse 7 out of 10, currently 4 out of 10. She denies any other symptoms such as fever, chest pain, shortness of breath, back pain, nausea, vomiting, diarrhea, constipation. She has no urinary symptoms. She is still taking her Augmentin. She currently has no additional questions or concerns. General Stated Complaint: Abd Prob DINO: 3 <OLEGARIO Begum - Last Filed: 04/05/20 14:29> Constitutional Constitutional: Denies fatigue, Denies fever(s) and Denies weakness ENT Ears, Nose, Mouth, and Throat: Denies neck pain Cardiovascular Cardiovascular: Denies chest pain and Denies dyspnea Respiratory Respiratory: Denies cough and Denies dyspnea Gastrointestinal Gastrointestinal: Reports abdominal pain, Denies melena, Denies hematochezia, Denies constipation, Denies diarrhea, Denies nausea and Denies vomiting Genitourinary Genitourinary: Denies dysuria Musculoskeletal Musculoskeletal: Denies back pain, Denies neck pain, Denies numbness and Denies tingling Integumentary/Breasts Skin/Breast: Denies rash Neurologic Neurologic: Denies numbness, Denies tingling and Denies weakness Endocrine Endocrine: Denies fatigue PFS <Arley Davila MD - Last Filed: 04/05/20 11:40> Surgical History 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 at the same time Social History Smoking/Tobacco Use Status: Former Tobacco Use Drug use: Never Substance use type: does not use Do you feel safe at home: Yes Do you feel safe in your relationship?: Yes <OLEGARIO Begum - Last Filed: 04/05/20 14:29> Const General: cooperative, healthy appearing, comfortable and no acute distress Orientation: alert, awake and oriented x3 HENMT Head: normal to inspection, normocephalic and atraumatic Mouth: moist mucous membranes Eyes Conjunctivae: conjunctivae normal Sclera: sclerae normal Neck Neck: normal visual inspection, full ROM, trachea midline, supple and nontender Resp Effort & Inspection: normal respiratory effort and able to speak in complete sentences Auscultation: clear to auscultation bilaterally Cardio Rate: regular rate Rhythm: regular rhythm GI Inspection: normal to inspection Palpation: soft, not firm, no guarding, not rigid and tender in the LLQ; with no rebound tenderness Auscultation: normal bowel sounds Back/Spine/Pelvis Back: No back tenderness Skin General skin exam: no rashes or lesions noted Neuro General: patient alert, patient awake, moves all extremities and no focal motor deficits Sensory Exam: no sensory deficits noted Psych Appearance: grossly normal Mental Status: mental status grossly normal <OLEGARIO Begum - Last Filed: 04/05/20 14:29> Vital Signs Vital signs: Vital Signs Temperature 36.5 C 04/05/20 09:15 Pulse 104 H 04/05/20 09:15 Respiratory Rate 16 04/05/20 09:15 Blood Pressure 145/86 H 04/05/20 09:15 Pulse Oximetry 95 04/05/20 09:15 Temperature 36.5 C 04/05/20 09:15 Temperature Source Tympanic 04/05/20 09:15 Pulse 86 04/05/20 11:31 Pulse 88 04/05/20 11:31 Respiratory Rate 18 04/05/20 11:31 Respiratory Effort Non-Labored 04/05/20 09:17 Blood Pressure 146/70 H 04/05/20 11:31 Blood Pressure Mean 88 04/05/20 11:31 Blood Pressure Position Sitting 04/05/20 09:15 Pulse Oximetry 93 L 04/05/20 11:31 Oxygen Delivery Method Room Air 04/05/20 09:15 Oxygen Flow Rate 0 04/05/20 09:15 Pain Level 2 04/05/20 09:31 Lab/Test Results Lab/Test Results: Laboratory Tests Range/Units 04/05/20 04/05/20 04/05/20 09:07 09:20 09:20 WBC (4.4-10.8) 10^3/uL RBC (3.93-5.22) 10^6/uL Hgb (11.2-15.7) g/dL Hct (36.0-46.0) % MCV (80-95) fL MCH (27.0-33.0) pg MCHC (32.0-36.0) % RDW (11.7-14.6) % Plt Count (130-400) 10^3/uL MPV (8.0-11.0) fL Immature Gran % Neutrophils % Lymphocytes % Monocytes % Eosinophils % Basophils % Absolute Neutrophils (1.2-6.7) 10^3/uL Absolute Lymphocytes (1.2-3.4) 10^3/uL Absolute Monocytes (0.1-0.8) 10^3/uL Absolute Eosinophils (0.0-0.7) 10^3/uL Absolute Basophils (0.0-0.2) 10^3/uL PT (9.3-11.0) sec INR (0.9-1.1) Sodium (136-145) mmol/L 137 Potassium (3.5-5.1) mmol/L 2.9 L* Chloride (98-107) mmol/L 99 Carbon Dioxide (21.0-32.0) mmol/L 27.9 Anion Gap (3-11) mmol/L 10.1 BUN (7-18) mg/dL 15 Creatinine (0.55-1.02) mg/dL 0.76 Estimated GFR/1.73 m2 (mL/min/1.73m2) >= 60.00 Glucose (74-106) mg/dL 129 H Lactate (0.6-1.4) mmol/L 0.8 Calcium (8.5-10.1) mg/dL 9.2 Total Bilirubin (0.2-1.0) mg/dL 0.6 AST (15-37) U/L 24 ALT (14-59) U/L 36 Alkaline Phosphatase (46-116) U/L 201 H Total Protein (6.4-8.2) g/dL 7.7 Albumin (3.4-5.0) g/dL 2.8 L Lipase (73-393) U/L 83 Urine Color (Yellow) Susan Urine Clarity (Clear) Sl cloudy Urine pH (5-8) 6.5 Ur Specific [place] (1.005-1.025) 1.025 Urine Protein (Negative) mg/dL >=300 H Urine Ketones (Negative) mg/dL 40 H Urine Blood (Negative) Trace-intact H Urine Nitrite (Negative) Negative Urine Bilirubin (Negative) Moderate H Urine Urobilinogen (Up TO 0.2) EU/dL 4.0 H Ur Leukocyte Esterase (Negative) Negative Urine RBC (0-2) HPF 0-2 Urine WBC (0-5) HPF 0-2 Ur Epithelial Cells (Negative) HPF Rare Urine Crystals (Negative) HPF Negative Urine Bacteria (Negative) HPF Negative Urine Casts (Negative) LPF Negative Urine Mucus (Negative) Moderate Ur Culture Indicated? No Urine Glucose (Negative) mg/dL Negative Range/Units 04/05/20 04/05/20 09:20 09:20 WBC (4.4-10.8) 10^3/uL 16.85 H RBC (3.93-5.22) 10^6/uL 4.22 Hgb (11.2-15.7) g/dL 12.5 Hct (36.0-46.0) % 38.1 MCV (80-95) fL 90.3 MCH (27.0-33.0) pg 29.6 MCHC (32.0-36.0) % 32.8 RDW (11.7-14.6) % 12.7 Plt Count (130-400) 10^3/uL 391 D MPV (8.0-11.0) fL 10.6 Immature Gran % 0.4 Neutrophils % 86.5 Lymphocytes % 6.9 Monocytes % 5.8 Eosinophils % 0.1 Basophils % 0.3 Absolute Neutrophils (1.2-6.7) 10^3/uL 14.58 H Absolute Lymphocytes (1.2-3.4) 10^3/uL 1.16 L Absolute Monocytes (0.1-0.8) 10^3/uL 0.98 H Absolute Eosinophils (0.0-0.7) 10^3/uL 0.02 Absolute Basophils (0.0-0.2) 10^3/uL 0.05 PT (9.3-11.0) sec 10.7 INR (0.9-1.1) 1.1 Sodium (136-145) mmol/L Potassium (3.5-5.1) mmol/L Chloride (98-107) mmol/L Carbon Dioxide (21.0-32.0) mmol/L Anion Gap (3-11) mmol/L BUN (7-18) mg/dL Creatinine (0.55-1.02) mg/dL Estimated GFR/1.73 m2 (mL/min/1.73m2) Glucose (74-106) mg/dL Lactate (0.6-1.4) mmol/L Calcium (8.5-10.1) mg/dL Total Bilirubin (0.2-1.0) mg/dL AST (15-37) U/L ALT (14-59) U/L Alkaline Phosphatase (46-116) U/L Total Protein (6.4-8.2) g/dL Albumin (3.4-5.0) g/dL Lipase (73-393) U/L Urine Color (Yellow) Urine Clarity (Clear) Urine pH (5-8) Ur Specific [place] (1.005-1.025) Urine Protein (Negative) mg/dL Urine Ketones (Negative) mg/dL Urine Blood (Negative) Urine Nitrite (Negative) Urine Bilirubin (Negative) Urine Urobilinogen (Up TO 0.2) EU/dL Ur Leukocyte Esterase (Negative) Urine RBC (0-2) HPF Urine WBC (0-5) HPF Ur Epithelial Cells (Negative) HPF Urine Crystals (Negative) HPF Urine Bacteria (Negative) HPF Urine Casts (Negative) LPF Urine Mucus (Negative) Ur Culture Indicated? Urine Glucose (Negative) mg/dL
[2020-04-05] MEDS: Potassium Chloride 20 MEQ TABCR 40 MEQ PO (14:16)
== END 2020-04-05 14:27 | disposition left against medical advice (07) ==
PROVIDERS: Emergency Provider Physician Assistant
DX: K57.20 Diverticulitis of large intestine with perforation and abscess without bleeding (principal); E87.6 Hypokalemia; Z53.29 Procedure and treatment not carried out because of patient's decision for other reasons
CPT/HCPCS: 36415; 80053; 83690; 93005; 96361; 96365; 96366; 96368; 96375; 99285; 74177; 81003; 81015; 83605; 85025; 85610; 93010; J2543; J3480; J3490